=== PATIENT | male | born 1940 | race Caucasian/White ===

== ENCOUNTER 2017-04-03 20:01 | Emergency (ER) | payer MEDICARE ==
[2017-04-03] MEDS ORDERED: Albuterol-Ipratrop 3 mg / 0.5 (3 ml) UD IH STA (20:36)
[2017-04-03] MEDS ORDERED: Albuterol-Ipratrop 3 mg / 0.5 (3 ml) UD ONE (20:43)
--- NOTE | 2017-04-03 22:08 | C.PDOC ---
Time Seen by Provider: 04/03/17 20:26 Chief Complaint (Nursing): Cough, Cold, Congestion History Per: Patient, Family Onset/Duration Of Symptoms: Days (5) Current Symptoms Are (Timing): Still Present Associated Symptoms: Cough, Sputum Severity: Moderate Additional History Per: Prior Records Past Medical History Reviewed: Historical Data, Nursing Documentation, Vital Signs Vital Signs: Last Vital Signs Temp 98.9 F 04/03/17 20:12 Pulse 96 H 04/03/17 20:12 Resp 20 04/03/17 20:30 BP 134/75 04/03/17 20:12 Pulse Ox 93 L 04/03/17 20:12 - Medical History PMH: Diabetes, HTN, Hypercholesterolemia Family History: States: Unknown Family Hx - Social History Hx Tobacco Use: No Hx Alcohol Use: No Hx Substance Use: No - Immunization History Hx Tetanus Toxoid Vaccination: No Hx Influenza Vaccination: No Hx Pneumococcal Vaccination: No Review Of Systems Except As Marked, All Systems Reviewed And Found Negative. Constitutional: Negative for: Fever, Weakness ENT: Negative for: Throat Pain Cardiovascular: Negative for: Chest Pain Respiratory: Positive for: Cough, Sputum. Negative for: Shortness of Breath, Hemoptysis Gastrointestinal: Negative for: Vomiting, Abdominal Pain, Diarrhea Genitourinary: Negative for: Dysuria Musculoskeletal: Negative for: Neck Pain, Back Pain, Leg Pain Skin: Negative for: Rash Neurological: Negative for: Weakness, Numbness, Seizures, Altered Mental Status Physical Exam - Physical Exam Appears: Non-toxic, No Acute Distress Skin: Normal Color, Warm, Dry, No Rash Head: Atraumatic, Normacephalic Eye(s): bilateral: Normal Inspection, PERRL, EOMI Neck: Normal ROM, Supple Cardiovascular: Rhythm Regular Respiratory: Normal Breath Sounds, No Accessory Muscle Use Gastrointestinal/Abdominal: Soft, No Tenderness Back: No CVA Tenderness Extremity: Normal ROM, No Pedal Edema, No Calf Tenderness Neurological/Psych: Oriented x3, Normal Speech, Normal Motor, Normal Sensation ED Course And Treatment O2 Sat by Pulse Oximetry: 97 (on RA) Pulse Ox Interpretation: Normal - Radiology CXR: Interpreted by Me, Viewed By Me CXR Interpretation: Yes: No Acute Disease Reassessment Condition: Improved Disposition Counseled Patient/Family Regarding: Studies Performed, Diagnosis, Need For Followup, Rx Given - Disposition Referrals: Jose Armando Guardado [Staff Provider] - Disposition: HOME/ ROUTINE Disposition Time: 22:08 Condition: STABLE Additional Instructions: Follow up with your doctor within 2-3 days. Return to the ER if you develop fever, shortness of breath, worsening of symptoms or if you have any other concerns. Prescriptions: Albuterol HFA [Ventolin HFA 90 mcg/actuation (8 g)] 2 puff IH Q4 PRN #1 unit PRN Reason: Cough And Congestion Azithromycin 1 tab PO DAILY #4 tab Benzonatate 200 mg PO TID PRN #15 capsule PRN Reason: Cough Instructions: Acute Bronchitis (ED) Forms: [employer] (French) - Clinical Impression Clinical Impression: Acute bronchitis
[2017-04-03 22:20] VITALS: BP 161/68; PULSE 83; RESP 18; TEMP 97.4; O2SAT 98
--- NOTE | 2017-04-04 08:09 | RAD ---
HISTORY: Cough COMPARISON: Comparison is made with 06/05/2016 TECHNIQUE: Chest PA and lateral FINDINGS: LUNGS: No evidence of new infiltrate or consolidation in the lungs. PLEURA: No significant pleural effusion identified. No pneumothorax apparent. CARDIOVASCULAR: Normal. OSSEOUS STRUCTURES: No significant abnormalities. VISUALIZED UPPER ABDOMEN: Normal. OTHER FINDINGS: None. IMPRESSION: No active disease.
== END 2017-04-03 22:28 | disposition home or self-care (01) ==
LOC: C.ER 20:01
DX: J20.9 Acute bronchitis, unspecified (principal)

== ENCOUNTER 2017-05-22 09:20 | Emergency (ER) | payer MEDICARE ==
[2017-05-22 09:24] VITALS: RESP 20
--- NOTE | 2017-05-22 09:40 | C.PDOC ---
History Of Present Illness 76 year old male presents to the ED for evaluation skin rash and itchiness which began yesterday. Patient reports questionable onset after eating "Mac [employer]." He denies mouth swelling, difficulty swallowing, nausea, vomiting, dizziness, and shortness of breath. SKIN RASH, ITCH SINCE YEST. QUESTIONABLE ONSET AFTER EATING "MAC [employer]". NO MOUTH SWELLING, DIFF SWALLOWING, NV, DIZZY, SOB. EXAM APPEARS COMFORTABLE NAD HEENT NO ANGIOEDEMA STRIDOR DROOL LUNGS CTA B/L NO W/R/R SPEAKING FULL SENTENCES SKIN +HIVES NECK, UPPER BACK AND CHEST WALL L FOREARMS. EXT NO EDEMA REMAINDER NEG Time Seen by Provider: 05/22/17 09:27 Chief Complaint (Nursing): Allergic Reaction History Per: Patient History/Exam Limitations: no limitations Onset/Duration Of Symptoms: Hrs Current Symptoms Are (Timing): Still Present Possible Cause: Food Associated Symptoms: Skin Rash, Itching. denies: Swelling, Trouble Swallowing, Dizziness Additional History Per: Patient Past Medical History Reviewed: Historical Data, Nursing Documentation, Vital Signs Vital Signs: Last Vital Signs Temp 97.9 F 05/22/17 10:44 Pulse 91 H 05/22/17 10:44 Resp 20 05/22/17 10:44 BP 164/80 H 05/22/17 10:44 Pulse Ox 99 05/22/17 10:51 - Medical History PMH: Diabetes, HTN, Hypercholesterolemia Surgical History: No Surg Hx Family History: States: Unknown Family Hx - Social History Hx Tobacco Use: No Hx Alcohol Use: Yes Hx Substance Use: No - Immunization History Hx Tetanus Toxoid Vaccination: No Hx Influenza Vaccination: No Hx Pneumococcal Vaccination: No Review Of Systems ENT: Negative for: Throat Swelling, Other (difficulty swallowing ) Respiratory: Negative for: Shortness of Breath Gastrointestinal: Negative for: Nausea, Vomiting Skin: Positive for: Rash (with itchiness) Neurological: Negative for: Dizziness Physical Exam - Physical Exam Appears: Non-toxic, No Acute Distress, Other (comfortably) Skin: Warm, Dry, Other (hives noted to neck, upper back, chest wall, and left forearms. no angioedema ) Head: Atraumatic, Normacephalic Eye(s): bilateral: Normal Inspection Ear(s): Bilateral: Normal Nose: Normal, No Discharge Oral Mucosa: Moist, No Drooling Throat: Normal, No Erythema, No Exudate, No Drooling Neck: Supple Respiratory: Normal Breath Sounds, No Rales, No Rhonchi, No Stridor, No Wheezing Extremity: Normal ROM, Capillary Refill (less than 2 seconds ), No Other (edema to extremities ) Neurological/Psych: Oriented x3, Normal Speech, Normal Cognition ED Course And Treatment O2 Sat by Pulse Oximetry: 99 (on RA) Pulse Ox Interpretation: Normal Progress Note: Benadryl PO, Pepcid PO, and Prednisone PO administered. On reassessment, patient is resting comfortably, showing no signs of respiratory distress and reports an improvement in his symptoms. Patient is stable for discharge and is advised to f/u with his PMD and/or return to the ED if symptoms persist or worsen. Reevaluation Time: 10:39 Reassessment Condition: Improved (HIVES RESOLVED) Disposition Counseled Patient/Family Regarding: Diagnosis, Need For Followup, Rx Given - Disposition Referrals: YOUR,PMD [Other] Disposition: HOME/ ROUTINE Disposition Time: 10:39 Condition: IMPROVED Prescriptions: predniSONE [Prednisone] 60 mg PO DAILY #12 tab Instructions: Hives Forms: [employer] [facility] (Peruvian) - Clinical Impression Clinical Impression: Urticaria - Scribe Statement The provider has reviewed the documentation as recorded by the Scribe (Li Cabrera) Provider Attestation: All medical record entries made by the Scribe were at my direction and personally dictated by me. I have reviewed the chart and agree that the record accurately reflects my personal performance of the history, physical exam, medical decision making, and the department course for this patient. I have also personally directed, reviewed, and agree with the discharge instructions and disposition.
[2017-05-22 10:46] VITALS: BP 164/80; PULSE 91; TEMP 97.9
[2017-05-22 10:48] VITALS: O2SAT 99
== END 2017-05-22 10:47 | disposition home or self-care (01) ==
LOC: C.ER 09:20
DX: L50.9 Urticaria, unspecified (principal); I10 Essential (primary) hypertension; E78.00 Pure hypercholesterolemia, unspecified; E11.9 Type 2 diabetes mellitus without complications